=== PATIENT | female | born 1945 | race Caucasian/White ===

== ENCOUNTER → 2020-04-17 | Outpatient (CLI) | payer OTHER ==
--- NOTE | 2020-05-20 11:20 | SLEEP ---
[address] [address] SLEEP STUDY REPORT Name: IZZYILIANA Julieta Room: [facility]#: [id number] Admission: 04/17/20 Attend Phys: Leonardo Gómez MD Discharge: Date of : 47 Report #: [id number] THIS REPORT FOR: cc: Partha Hebert John E. DO ~ Leonardo Gómez MD This study has been reviewed in its entirety by a board certified sleep specialist DATE OF SERVICE: 05/17/2020 SLEEP STUDY INDICATION FOR SLEEP STUDY: Excessive daytime sleepiness and previous diagnosis of obstructive sleep apnea. The patient currently uses a CPAP, which is 8 years old, still has excessive daytime sleepiness. INTERPRETATION: Total duration of the study is 420 minutes. The patient, however, was asleep for only 90 minutes with an overall sleep efficiency decreased to 22%. Sleep onset occurred more than 1-1/2 hours after lying down in bed. There is no REM sleep. N1 sleep duration is 21%, N2 duration is 79%. We did record several sleep related respiratory events. These included 9 hypopneas in addition to 14 respiratory effort related arousals. Overall, apnea-hypopnea index is 6. Body position data indicates the patient is lying supine throughout the sleep study. Mean heart rate is 55. Periodic limb movement index is normal at 4.6. Arousal index is elevated to 39. O2 saturation is adequately maintained during the sleep study. For most of the sleep study; however, we did record several desaturations. Overall, the patient only spent 1.1 minutes below an O2 saturation of 88%. IMPRESSION: This patient has obstructive sleep apnea. It appears to be significantly more severe than would be expected with an apnea-hypopnea index of 6. I feel that we have a grossly underestimated her apnea-hypopnea index due to the patient being awake for most of the sleep study. It is also likely that in sustained sleep the patient will have significant hypoxemia. RECOMMENDATIONS: I recommend repeating a sleep study for positive airway pressure titration. The patient is instructed to stay awake the whole day prior to the next sleep study and avoid caffeine, so that an adequate total sleep time was recorded for evaluation to be possible. Meanwhile, we will also obtain patient's CPAP [place] [address] SLEEP STUDY REPORT Name: ILIANA MAGANA Room: [facility]#: [id number] Admission: 04/17/20 Attend Phys: Leonardo Gómez MD Discharge: Date of : 47 Report #: [id number] Until the repeat sleep study was reviewed recommend continuing with CPAP therapy as currently prescribed. Recommend weight loss. Recommend avoiding driving or other activities requiring vigilance if drowsy. This entire sleep study was reviewed by board certified sleep physician. <ELECTRONICALLY SIGNED> By: Leonardo Gómez MD 05/20/20 1120 [id number] obdulia Mark
== END ==
LOC: M.SLEEPLAB 04-16 20:00
PROVIDERS: ATTEND Internal Medicine Critical Care Medicine
DX: G47.33 Obstructive sleep apnea (adult) (pediatric) (principal)

== ENCOUNTER 2020-06-10 16:13 | Emergency (ER) | payer OTHER ==
[~2020-06-10] VITALS: Ht 167.6 cm; Wt 136.1 kg
[2020-06-10] MEDS ORDERED: NEURONTIN 300M300 M2 PO (16:24)
[2020-06-10] MEDS ORDERED: ADVAIR 250-501 EACH INH (16:25)
[2020-06-10] MEDS ORDERED: ATENOLOL 50MG T50 MG PO (16:25)
[2020-06-10] MEDS ORDERED: AMITRIPTYLINE H25 M4 PO (16:25)
[2020-06-10] MEDS ORDERED: ALLER-FEX180 MG PO (16:25)
[2020-06-10] MEDS ORDERED: TYLENOL325 M1 PO (16:26)
[2020-06-10] MEDS ORDERED: ELIQUIS2.5 MG PO (16:26)
[2020-06-10] MEDS ORDERED: ARMOUR THYROID30 M1 PO (16:26)
[2020-06-10] MEDS ORDERED: LOPID600 MG PO (16:28)
[2020-06-10 16:50] LABS: ABSOLUTE EOSINOPHILS 0.1 thou/uL (0.0-0.7); ABSOLUTE LYMPHOCYTES 1.3 thou/uL (0.8-5.3); ABSOLUTE MONOCYTES 0.4 thou/uL (0.0-1.2); ABSOLUTE NEUTROPHILS 2.9 thou/uL (1.6-8.1); BASOPHILS 0.7 %; EOSINOPHILS 1.2 %; HEMATOCRIT 35.9 % (37.0-47.0); HEMOGLOBIN 11.6 gm/dL (12.0-15.0); LYMPHOCYTES 27.5 %; MCH 30.1 pg (26.0-34.0); MCHC 32.3 g/dL (28.0-37.0); MCV 93.3 fL (80.0-100.0); MONOCYTES 8.4 %; MPV 8.7 fl. (7.2-11.1); NUCLEATED RBCS 0 /100WBC; PLATELET COUNT* 213 thou/uL (150-400); POLYS 62.2 %; RBC 3.85 mil/uL (4.20-5.00); RDW-CV 13.7 % (10.5-14.5); WBC 4.7 thou/uL (4.0-11.0)
[2020-06-10 16:59] LABS: CALCIUM 9.4 mg/dL (8.5-10.1); CREATININE 0.7 mg/dL (0.6-1.3); POTASSIUM 3.7 mmol/L (3.5-5.1)
[2020-06-10 17:03] LABS: ALBUMIN 3.5 g/dL (3.4-5.0); TOTAL BILIRUBIN 0.5 mg/dL (<0.1-1.0); TOTAL PROTEIN 7.6 g/dL (6.4-8.2)
[2020-06-10 18:13] VITALS: BP 161/86
== END 2020-06-10 18:13 | disposition home or self-care (01) ==
LOC: M.ERS 16:13
PROVIDERS: Family Medicine
DX: S60.041A Contusion of right ring finger without damage to nail, initial encounter (principal); S90.31XA Contusion of right foot, initial encounter; Z88.5 Allergy status to narcotic agent; Z79.899 Other long term (current) drug therapy; W01.0XXA Fall on same level from slipping, tripping and stumbling without subsequent striking against object, initial encounter; Y93.89 Activity, other specified; Y92.89 Other specified places as the place of occurrence of the external cause; Y99.8 Other external cause status